=== PATIENT | female | born 1955 | race Caucasian/White ===

== ENCOUNTER 2016-03-24 04:05 | Emergency (ER) | payer SELFPAY | END 2016-03-24 06:32 | disposition home or self-care (01) | LOC: ER 04:05 | DX: R07.2 Precordial pain (principal); R07.89 Other chest pain; R55 Syncope and collapse; F17.210 Nicotine dependence, cigarettes, uncomplicated | CPT/HCPCS: 36415; 71010; 80053; 82550; 83735; 84484; 85025; 85610; 85730; 93005 ==